=== PATIENT | male | born 1990 | race Caucasian/White ===

== ENCOUNTER 2021-08-03 12:43 | Emergency (ER) | payer SELFPAY ==
[~2021-08-03] VITALS: Ht 190.5 cm; Wt 90.7 kg
[2021-08-03] MEDS ORDERED: HYDR1TAB94 PO (13:34)
== END 2021-08-03 13:52 | disposition home or self-care (01) ==
LOC: ER 12:43
DX: S62.336A Displaced fracture of neck of fifth metacarpal bone, right hand, initial encounter for closed fracture (principal); W22.8XXA Striking against or struck by other objects, initial encounter
CPT/HCPCS: 29125; 73130; 99284-25; A9270

== ENCOUNTER 2023-04-06 12:46 | Emergency (ER) | payer OTHER ==
[~2023-04-06] VITALS: Ht 190.5 cm; Wt 81.7 kg
[~2023-04-06 12:46] MED LIST: ERYT1OIN LEFTEYE; HYDR1TAB94 PO
[2023-04-06 12:54] VITALS: BP 113/71
== END 2023-04-06 14:08 | disposition home or self-care (01) ==
LOC: ER 12:46
DX: S61.011A Laceration without foreign body of right thumb without damage to nail, initial encounter (principal); W29.8XXA Contact with other powered hand tools and household machinery, initial encounter; Z23 Encounter for immunization
CPT/HCPCS: 12001; 90471; 90714; 99282-25